=== PATIENT | female | born 1995 | race Caucasian/White ===

== ENCOUNTER → 2021-05-27 | Outpatient (REF) | payer OTHER | LOC: M SFHCWAGY 13:34 | PROVIDERS: ATTEND Obstetrics & Gynecology | DX: Z01.419 Encounter for gynecological examination (general) (routine) without abnormal findings (principal); Z12.4 Encounter for screening for malignant neoplasm of cervix | CPT/HCPCS: G0123; G0463 ==

== ENCOUNTER → 2023-06-21 | Outpatient (REF) | payer OTHER ==
[2023-06-21 15:28] LABS: GC DNA AMPLIFICATION NEGATIVE (NEGATIVE)
== END ==
LOC: M SFHCWAGY 13:26
PROVIDERS: ATTEND Obstetrics & Gynecology
DX: Z34.01 Encounter for supervision of normal first pregnancy, first trimester (principal)

== ENCOUNTER → 2023-07-27 | Outpatient (CLI) | payer OTHER | LOC: M WHC 08:24 | PROVIDERS: ATTEND Obstetrics & Gynecology | DX: Z36.89 Encounter for other specified antenatal screening (principal); Z3A.14 14 weeks gestation of pregnancy ==

== ENCOUNTER → 2023-10-03 | Outpatient (CLI) | payer OTHER | LOC: M PLALAB 14:53 | PROVIDERS: ATTEND Obstetrics & Gynecology | DX: Z34.92 Encounter for supervision of normal pregnancy, unspecified, second trimester (principal) ==

== ENCOUNTER → 2023-11-18 | Outpatient (REF) | payer OTHER | LOC: M SFHCWAGY 09:48 | PROVIDERS: ATTEND Advanced Practice Midwife | DX: Z34.03 Encounter for supervision of normal first pregnancy, third trimester (principal) ==

== ENCOUNTER 2023-12-27 07:33 | Inpatient (IN) | payer OTHER ==
[~2023-12-27] VITALS: Ht 160 cm; Wt 88.2 kg
[2023-12-27] VITALS (31 sets, daily range): BP systolic 107–209; BP diastolic 51–86; O2SAT 100
[2023-12-27] MEDS ORDERED: FAMO40TA3 PO (07:59)
[2023-12-27] MEDS ORDERED: PRENTAB9 PO (07:59)
[2023-12-27] MEDS ORDERED: HOME MED LIST COMPLETE! XX SCH (08:00)
[2023-12-27] MEDS ORDERED: OXYTOCIN DRIP 30 UNITS in IV 1 EA IV PRN (09:35)
[2023-12-27] MEDS ORDERED: CARBOPROST TROMETHAMINE 250 MCG/ML AMP IM PRN (09:35)
[2023-12-27] MEDS ORDERED: TRANEXAMIC ACID INJection 1,000 MG in NS 100 ML IV PRN (09:35)
[2023-12-27] MEDS ORDERED: METHYLERGONOVINE MALEATE 0.2MG/ML 1ML VIAL IM PRN (09:35)
[2023-12-27 09:39] LABS: HEMATOCRIT 34.4 % (36.0-47.0); MEAN CORPUSCULAR HEMOGLOBIN 26.5 pg (27.0-33.0); MEAN CORPUSCULAR VOLUME 82.9 fl (80.0-96.0); PLATELET COUNT, AUTOMATED 190 10^3/uL (150-450); RED BLOOD COUNT 4.15 10^6/uL (4.00-5.40); WHITE BLOOD COUNT 12.2 10^3/uL (4.0-10.0)
[2023-12-27] MEDS: LR 1,000 ML IV ONE (10:17)
[2023-12-27] MEDS: miSOPROStol 50MCG 1/2 TABLET BUC ONE ×2 (10:28→15:18)
[2023-12-27 10:47] LABS: HEPATITIS C VIRUS ABY INDEX < 0.02 INDEX (<0.8)
[2023-12-27] MEDS ORDERED: LR 1,000 ML IV SCH (19:00)
[2023-12-27] MEDS ORDERED: OXYTOCIN DRIP 30 UNITS in IV 1 EA IV SCH (19:00)
[2023-12-27] MEDS ORDERED: ONDANSETRON 4MG 2ML VIAL IV PRN (19:55)
[2023-12-27] MEDS ORDERED: diphenhydrAMINE 50MG/ML VIAL IV PRN (19:55)
[2023-12-27] MEDS ORDERED: EPIDURAL/PCA KEYS XX PRN (19:55)
[2023-12-27] MEDS ORDERED: NALOXONE INJ 0.4MG/1ML VIAL IV PRN (19:55)
[2023-12-27] MEDS: FENTANYL/ROPIVACAINE/NACL BAG 100 ML EPIDURAL SCH (19:58)
[2023-12-27] MEDS: LR 1,000 ML IV SCH (20:02)
[2023-12-27] MEDS: LR 500 ML IV PRN (21:30)
[2023-12-27] MEDS ORDERED: TERBUTALINE SULFATE 1 MG/ML 1ML VIAL As Ordered ONE (21:31)
[2023-12-27] MEDS: TERBUTALINE SULFATE 1 MG/ML 1ML VIAL SC STA (21:34)
[2023-12-27] MEDS: ePHEDrine SULFATE 25 MG/5 ML(5MG/ML) SYRINGE IVP PRN (22:08)
[2023-12-27] MEDS: LACTATED RINGER'S 1000 ML IV PRN (22:16)
[2023-12-28] VITALS (11 sets, daily range): BP systolic 102–118; BP diastolic 55–77; TEMP 97.9; O2SAT 96–100
[2023-12-28] MEDS ORDERED: OXYTOCIN 30UNITS IN 0.9% NaCl 500ML IV BAG As Ordered ONE (00:04)
[2023-12-28] MEDS ORDERED: MORPHINE PRES-FREE INJ 10 MG/10 ML VIAL As Ordered ONE (00:04)
[2023-12-28] MEDS ORDERED: ONDANSETRON 4MG 2ML VIAL As Ordered ONE (00:05)
[2023-12-28] MEDS ORDERED: LIDOCAINE 2% W/EPINEPHRINE 20ML VIAL **PRES FREE As Ordered ONE (00:06)
[2023-12-28] MEDS ORDERED: ceFAZolin 2 GM/D5W 50 ML IV BAG As Ordered ONE (00:15)
[2023-12-28] MEDS ORDERED: BICITRA 30ML SOLN UDC As Ordered ONE (00:16)
[2023-12-28] MEDS ORDERED: AZITHROMYCIN INJ 500MG VIAL As Ordered ONE (00:16)
[2023-12-28] MEDS: BICITRA 30ML SOLN UDC PO ONE (00:20)
[2023-12-28] MEDS: ceFAZolin SOD 2 GM in IV 1 EA IV ONE (00:20)
[2023-12-28] MEDS: AZITHROMYCIN INJ 500 MG, VIAL MATE ADAPTER 1 EACH in NS 250 ML IV ONE (00:20)
[2023-12-28] MEDS ORDERED: ACETAMINOPHEN 1000MG 100ML IV BAG As Ordered ONE (00:52)
[2023-12-28] MEDS ORDERED: KETOROLAC 60MG 2ML VIAL As Ordered ONE (00:52)
[2023-12-28] MEDS ORDERED: oxyCODONE 5MG TAB PO PRN ×2 (01:25→01:55)
[2023-12-28] MEDS ORDERED: SIMETHICONE 80MG CHEW TAB PO PRN (01:25)
[2023-12-28] MEDS: OXYTOCIN DRIP 30 UNITS in IV 1 EA IV SCH (01:25)
[2023-12-28] MEDS ORDERED: IBUP-1022 PO (01:39)
[2023-12-28] MEDS ORDERED: OXYC-517 PO (01:39)
[2023-12-28] MEDS ORDERED: ACET-683 PO (01:39)
[2023-12-28] MEDS ORDERED: COLA100C5 PO (01:39)
[2023-12-28] MEDS ORDERED: diphenhydrAMINE 50MG/ML VIAL IV PRN (01:55)
[2023-12-28] MEDS: SLF 3 ML SYR IV SCH (01:55)
[2023-12-28] MEDS ORDERED: fentaNYL 100 MCG/2 ML INJECTION IV PRN (01:55)
[2023-12-28] MEDS ORDERED: NALOXONE INJ 0.4MG/1ML VIAL IV PRN ×2 (01:55)
[2023-12-28] MEDS ORDERED: ONDANSETRON 4MG 2ML VIAL IV PRN (01:55)
[2023-12-28] MEDS: LR 1,000 ML IV SCH (01:55)
[2023-12-28] MEDS ORDERED: **NOTE PATIENT COMMENT** MISC XX SCH (01:55)
[2023-12-28] MEDS: METOCLOPRAMIDE INJ 10MG/2ML VIAL IV PRN (05:29)
[2023-12-28] MEDS: KETOROLAC 30 MG/ML 1ML VIAL IV SCH (06:47)
[2023-12-28] MEDS: ACETAMINOPHEN 500 MG TAB PO SCH ×2 (07:00→17:19)
[2023-12-28] MEDS: PRENATAL VITAMINS CHEWABLE TABLET PO SCH (09:00)
[2023-12-28] MEDS: ONDANSETRON 4MG 2ML VIAL IV PRN (09:28)
[2023-12-28] MEDS: oxyCODONE 5MG TAB PO PRN (20:25)
[2023-12-29 02:00] VITALS: BP 120/67; O2SAT 98
[2023-12-29] MEDS: IBUPROFEN 600MG TAB PO SCH (02:19)
[2023-12-29 06:00] VITALS: BP 126/66; O2SAT 100
[2023-12-29 07:01] LABS: MEAN CORPUSCULAR HEMOGLOBIN 26.6 pg (27.0-33.0); MEAN CORPUSCULAR HGB CONC 31.3 g/dl (32.0-36.5); MEAN CORPUSCULAR VOLUME 84.9 fl (80.0-96.0); PLATELET COUNT, AUTOMATED 140 10^3/uL (150-450); RED BLOOD COUNT 3.05 10^6/uL (4.00-5.40); WHITE BLOOD COUNT 12.4 10^3/uL (4.0-10.0)
[2023-12-29 07:17] LABS: HEMATOCRIT 25.9 % (36.0-47.0)
[2023-12-29 07:18] LABS: HEMOGLOBIN 8.1 g/dl (12.0-15.5)
[2023-12-29] MEDS: DOCUSATE SODIUM 100MG CAPSULE PO PRN (08:43)
[2023-12-29 10:30] VITALS: BP 116/58; O2SAT 96
[2023-12-29 14:30] VITALS: BP 110/60; O2SAT 98
[2023-12-29 18:00] VITALS: BP 122/68; O2SAT 98
[2023-12-29 22:00] VITALS: BP 120/63; O2SAT 98
[2023-12-30 06:00] VITALS: BP 127/68; O2SAT 98
[2023-12-30] MEDS: MEASLES,MUMPS,RUBELLA VACCINE INJ (MMR-II) SC.IMMUN ONE (09:18)
[2023-12-30 10:00] VITALS: BP 118/73; O2SAT 99
[2023-12-30] MEDS: RHO(D) IMMUNE GLOBULIN/MALTOSE 500MCG(2500IU)/2.2ML VIAL (WINRHO) IM SCH (10:08)
== END 2023-12-30 13:18 | disposition home or self-care (01) | DRG 540 ==
LOC: M LDI 07:33 → M OBS 12-28 02:46
PROVIDERS: ADMIT Obstetrics & Gynecology; ATTEND Obstetrics & Gynecology
PROC: 3E0P7GC Introduction of Other Therapeutic Substance into Female Reproductive, Via Natural or Artificial Opening (ICD-10-PCS; 2023-12-27)
PROC: 10907ZC Drainage of Amniotic Fluid, Therapeutic from Products of Conception, Via Natural or Artificial Opening (ICD-10-PCS; 2023-12-28)
PROC: 10D00Z1 Extraction of Products of Conception, Low, Open Approach (ICD-10-PCS; principal; 2023-12-28 00:08)
DX: O48.0 Post-term pregnancy (principal); O76 Abnormality in fetal heart rate and rhythm complicating labor and delivery; Z79.899 Other long term (current) drug therapy; Z3A.40 40 weeks gestation of pregnancy; Z37.0 Single live birth